=== PATIENT | male | born 1995 | race Caucasian/White ===

== ENCOUNTER 2017-01-28 20:39 | Emergency (ER) | payer MEDICAID ==
[~2017-01-28] VITALS: Ht 180.3 cm; Wt 86.2 kg
[~2017-01-28 20:39] MED LIST: CARB100T24 PO; METHYLIN PO; RISP0.5T20 PO
[2017-01-28 20:48] VITALS: BP_SYST 156
[2017-01-28] MEDS ORDERED: IBUPROFEN 600 MG TABLET PO ONE (21:15)
[2017-01-28 22:10] VITALS: BP_SYST 149
== END 2017-01-28 22:10 | disposition home or self-care (01) ==
LOC: SED 20:39
DX: S83.92XA Sprain of unspecified site of left knee, initial encounter (principal); Y93.39 Activity, other involving climbing, rappelling and jumping off; Y93.51 Activity, roller skating (inline) and skateboarding; Y92.89 Other specified places as the place of occurrence of the external cause; Y99.8 Other external cause status
CPT/HCPCS: 73564; 99284

== ENCOUNTER 2024-03-12 21:57 | Emergency (ER) | payer OTHER, MEDICAID ==
[~2024-03-12] VITALS: Ht 177.8 cm; Wt 97.5 kg
[~2024-03-12 21:57] MED LIST changes: -RISP0.5T20 PO; +RISP0.5T80 PO
[2024-03-12 22:05] VITALS: BP_SYST 142; PULSE 102; RESP 16; TEMP 99.6; O2SAT 99
[2024-03-12] MEDS ORDERED: IBUP-1969 PO (22:52)
[2024-03-12] MEDS: IBUPROFEN 600 MG TABLET PO ONE (23:46)
[2024-03-12 23:50] VITALS: BP_SYST 142; PULSE 102; RESP 16; TEMP 99.6; O2SAT 99
== END 2024-03-12 23:50 | disposition home or self-care (01) ==
LOC: SED 21:57
DX: S92.215A Nondisplaced fracture of cuboid bone of left foot, initial encounter for closed fracture (principal); Z79.899 Other long term (current) drug therapy; X50.0XXA Overexertion from strenuous movement or load, initial encounter; Y93.89 Activity, other specified; Y92.89 Other specified places as the place of occurrence of the external cause; Y99.8 Other external cause status
CPT/HCPCS: 99284